=== PATIENT | female | born 1960 | race Caucasian/White ===

== ENCOUNTER → 2024-11-10 | Outpatient (CLI) | payer OTHER, SELFPAY ==
[2024-11-10 15:39] LABS: Basophils # (Auto) 0.1 Thou/mm3 (0.0-0.2); Basophils % (Auto) 1 % (0-2.5); Eosinophils # (Auto) 0.4 Thou/mm3 (0.0-0.5); Eosinophils % (Auto) 6 % (0-10); Hematocrit 41.9 % (36.0-46.0); Hemoglobin 14.5 g/dL (12.0-16.0); Immature Granulocytes % (Auto) 0 % (0-0); Immature Granulocytes Auto 0.02 Thou/mm3 (0.00-0.00); Lymphocytes # (Auto) 1.7 Thou/mm3 (1.0-4.8); Lymphocytes % (Auto) 26 % (10-50); Mean Corpuscular HGB Conc 34.6 g/dl (31.0-37.0); Mean Corpuscular Hemoglobin 31.1 pg (25.0-35.0); Mean Corpuscular Volume 90 fL (80-100); Monocytes # (Auto) 0.5 Thou/mm3 (0.0-0.8); Monocytes % (Auto) 8 % (0-12); Neutrophils # (Auto) 3.8 Thou/mm3 (1.8-7.7); Neutrophils % (Auto) 59 % (37-80); Nucleated Red Blood Cell % 0 /100 WBC (0); Platelet Count 387 Thou/mm3 (140-440); RDW Standard Deviation 42.9 fL (36.4-46.3); Red Blood Count 4.66 Miln/mm3 (4.00-5.20); White Blood Count 6.5 Thou/mm3 (3.6-11.0)
[2024-11-10 15:57] LABS: C-Reactive Protein < 0.5 mg/dL (0.0-0.9)
[2024-11-10 17:43] LABS: Sed Rate (ESR) 20 mm/hr (0-30)
== END | disposition home or self-care (01) ==
PROVIDERS: PCP Family Medicine; Referring Provider Family Medicine; Visit Provider Family Medicine
DX: Z96.652 Presence of left artificial knee joint (principal)
CPT/HCPCS: 36415; 85025; 85652; 86140

== ENCOUNTER → 2025-04-07 | Outpatient (CLI) | payer BC, SELFPAY ==
[2025-04-07 16:18] LABS: Basophils # (Auto) 0.0 Thou/mm3 (0.0-0.2); Basophils % (Auto) 0 % (0-2.5); Eosinophils # (Auto) 0.0 Thou/mm3 (0.0-0.5); Eosinophils % (Auto) 0 % (0-10); Hematocrit 43.4 % (36.0-46.0); Hemoglobin 15.1 g/dL (12.0-16.0); Immature Granulocytes Auto 0.02 Thou/mm3 (0.00-0.00); Lymphocytes # (Auto) 1.6 Thou/mm3 (1.0-4.8); Lymphocytes % (Auto) 23 % (10-50); Mean Corpuscular HGB Conc 34.8 g/dl (31.0-37.0); Mean Corpuscular Hemoglobin 31.9 pg (25.0-35.0); Mean Corpuscular Volume 92 fL (80-100); Monocytes # (Auto) 0.2 Thou/mm3 (0.0-0.8); Monocytes % (Auto) 3 % (0-12); Neutrophils # (Auto) 5.2 Thou/mm3 (1.8-7.7); Neutrophils % (Auto) 74 % (37-80); Nucleated Red Blood Cell # 0.00 Thou/mm3 (0.00-0.00); Nucleated Red Blood Cell % 0 /100 WBC (0); Platelet Count 396 Thou/mm3 (140-440); RDW Standard Deviation 44.9 fL (36.4-46.3); Red Blood Count 4.74 Miln/mm3 (4.00-5.20); White Blood Count 7.1 Thou/mm3 (3.6-11.0)
[2025-04-07 17:13] LABS: C-Reactive Protein < 0.5 mg/dL (0.0-0.9); Creatine Kinase 37 U/L (34-171)
[2025-04-07 18:04] LABS: Sed Rate (ESR) 14 mm/hr (0-30)
[2025-04-07 20:13] LABS: RA Screen Negative (Negative)
[2025-04-13 08:50] LABS: Albumin 4.2 g/dL (3.8-4.8); Alpha-1-Globulin 0.3 g/dL (0.2-0.3); Alpha-2-Globulin 0.8 g/dL (0.5-0.9); Beta-1-Globulin 0.5 g/dL (0.4-0.6); Beta-2-globulin 0.6 g/dL (0.2-0.5); Gamma Globulin 1.1 g/dL (0.8-1.7)
[2025-04-18 08:47] LABS: ANA Pattern NUCLEAR, HOMOGENEOUS; ANA Screen, IFA POSITIVE (NEGATIVE); ANA Titer 1:320 titer; Protein, total, serum 7.5 g/dL (6.1-8.1)
== END | disposition home or self-care (01) ==
LOC: COPL 15:38
PROVIDERS: PCP Family Medicine; Referring Provider Family Medicine; Visit Provider Family Medicine
DX: M79.7 Fibromyalgia (principal)
CPT/HCPCS: 36415; 82550; 84155; 84165; 85025; 85652; 86038; 86140; 86430

== ENCOUNTER → 2025-07-13 | Outpatient (CLI) | payer BC, SELFPAY ==
[2025-07-13 12:01] LABS: Misc Send Out* See Sep Rpt
[2025-07-13 13:05] LABS: Basophils # (Auto) 0.1 Thou/mm3 (0.0-0.2); Basophils % (Auto) 1 % (0-2.5); Eosinophils # (Auto) 0.2 Thou/mm3 (0.0-0.5); Eosinophils % (Auto) 5 % (0-10); Hematocrit 41.7 % (36.0-46.0); Hemoglobin 14.2 g/dL (12.0-16.0); Immature Granulocytes Auto 0.01 Thou/mm3 (0.00-0.00); Lymphocytes # (Auto) 1.7 Thou/mm3 (1.0-4.8); Lymphocytes % (Auto) 43 % (10-50); Mean Corpuscular HGB Conc 34.1 g/dl (31.0-37.0); Mean Corpuscular Hemoglobin 31.3 pg (25.0-35.0); Mean Corpuscular Volume 92 fL (80-100); Monocytes # (Auto) 0.4 Thou/mm3 (0.0-0.8); Monocytes % (Auto) 9 % (0-12); Neutrophils # (Auto) 1.6 Thou/mm3 (1.8-7.7); Neutrophils % (Auto) 41 % (37-80); Nucleated Red Blood Cell # 0.00 Thou/mm3 (0.00-0.00); Nucleated Red Blood Cell % 0 /100 WBC (0); Platelet Count 371 Thou/mm3 (140-440); RDW Standard Deviation 42.7 fL (36.4-46.3); Red Blood Count 4.53 Miln/mm3 (4.00-5.20); White Blood Count 4.0 Thou/mm3 (3.6-11.0)
[2025-07-13 13:30] LABS: Alanine Aminotransferase 34 U/L (10-49); Albumin, Serum 4.6 gm/dL (3.4-4.8); Albumin/Globulin Ratio 1.8 (1.2-2.2); Alkaline Phosphatase 92 U/L (46-116); Anion Gap 9 (7-16); Aspartate Amino Transferase 29 U/L (0-34); BUN/Creatinine Ratio 13 Ratio (12-20); Bilirubin,Total 0.6 mg/dL (0.3-1.2); Blood Urea Nitrogen 12 mg/dL (9-23); C-Reactive Protein < 0.5 mg/dL (0.0-0.9); Calcium 9.5 mg/dL (8.3-10.6); Calcium (Corrected) 9.5 mg/dL (8.5-10.1); Carbon Dioxide 26.8 mMol/L (20.0-31.0); Chloride 108 mMol/L (98-107); Creatine Kinase 39 U/L (34-171); Creatinine (Component) 0.9 mg/dL (0.6-1.3); Free T4 (Free Thyroxine) 1.27 ng/dL (0.89-1.76); Globulin 2.5 gm/dL (2.3-3.5); Glucose 95 mg/dL (74-106); Osmolality,Calculated 286 (275-295); Potassium 3.9 mMol/L (3.4-5.1); Sodium 144 mMol/L (136-145); Thyroid Stimulating Hormone 0.59 uIU/mL (0.55-4.78); Total Protein 7.1 gm/dL (5.7-8.2); eGFR > 60 See Note
[2025-07-13 13:46] LABS: Folate > 24.00 ng/mL (>5.38); Vitamin B12 652 pg/mL (211-911); Vitamin D 25 Hydroxy Total 60.5 ng/mL (7.3-40.2)
[2025-07-13 15:20] LABS: Sed Rate (ESR) 7 mm/hr (0-30)
[2025-07-18 06:42] LABS: Aldolase* 3.6 U/L (< OR = 8.1); HLA-B27 Antigen* NEGATIVE (NEGATIVE)
[2025-07-21 06:31] LABS: Vitamin B1 (Thiamine)* 15 nmol/L (8-30)
== END | disposition home or self-care (01) ==
LOC: COPL 11:39
PROVIDERS: PCP Family Medicine; Referring Provider Internal Medicine; Visit Provider Internal Medicine
DX: E03.9 Hypothyroidism, unspecified (principal); F11.90 Opioid use, unspecified, uncomplicated; F41.9 Anxiety disorder, unspecified; M35.3 Polymyalgia rheumatica; M79.10 Myalgia, unspecified site; R06.83 Snoring; R53.83 Other fatigue; R76.89 Other specified abnormal immunological findings in serum; Z96.652 Presence of left artificial knee joint
CPT/HCPCS: 36415; 80053; 82085; 82180; 82306; 82550; 82607; 82746; 83529; 84425; 84439; 84443; 85025; 85652; 86140; 86812